=== PATIENT | male | born 1970 | race African-American/Black ===

== ENCOUNTER 2019-08-29 00:43 | Emergency (ER) | payer OTHER ==
[~2019-08-29] VITALS: Ht 167.6 cm; Wt 54.4 kg
--- NOTE | 2019-08-29 00:50 | NUR ---
ED Nurse Note: pt biba ra [id number] from [facility] c/o persistent vomiting. pt vomited twice enroute. pt has elevated bp at bedside, nad, ermd at bedside. pt has right picc line with double lumen. will continue to monitor patient.
--- NOTE | 2019-08-29 01:18 | Emergency Room Report ---
History of Present Illness General Chief Complaint: Vomiting Source: Patient Present Illness HPI This is a 48-year-old male with history of diabetes high blood pressure. He is currently in the [facility]dc for IV antibiotics for diabetic foot ulcer infection. He is currently taking vancomycin. He presents with complaint of abdominal pain and vomiting. Onset for the last 6 hours patient has been vomiting nonstop. Low-grade fever. Blowing is nonbloody nonbilious but no diarrhea. [place] weak. Also with a coughing from vomiting. Denies any other complaint. Pain is 5 out of 10. Allergies: Coded Allergies: No Known Allergies (Unverified , 08/29/19) Patient History Past Medical History: see triage record, old chart reviewed, DM, HTN Past Surgical History: other Pertinent Family History: none Social History: Denies: smoking Immunizations: other Reviewed Nursing Documentation: PMH: Agreed; PSxH: Agreed Review of Systems Eye: Denies: eye pain, blurred vision ENT: Denies: ear pain, nose congestion, throat swelling Respiratory: Denies: cough, shortness of breath Cardiovascular: Denies: chest pain, palpitations Gastrointestinal: Reports: abdominal pain, nausea, vomiting; Denies: diarrhea Musculoskeletal: Denies: back pain, joint pain Skin: Denies: rash Neurological: Denies: headache, numbness Endocrine: Denies: increased thirst, increased urine Hematologic/Lymphatic: Denies: easy bruising All Other Systems: negative except mentioned in HPI Physical Exam Vital Signs Date Time Temp Pulse Resp B/P (MAP) Pulse Ox O2 Delivery O2 Flow Rate FiO2 08/29/19 00:45 99.1 92 17 195/110 (138) 98 Room Air Vitals with high blood pressure Sp02 EP Interpretation: reviewed, normal General Appearance: well appearing, no apparent distress, alert Head: normocephalic, atraumatic Eyes: bilateral eye PERRL, bilateral eye EOMI ENT: hearing grossly normal, normal pharynx Neck: full range of motion, supple, no meningismus Respiratory: chest non-tender, lungs clear, normal breath sounds Cardiovascular #1: regular rate, rhythm, no murmur Gastrointestinal: no mass, no organomegaly, no bruit, non-distended, tenderness - Mild, diffuse, decreased bowel sounds Musculoskeletal: back normal, normal range of motion, gait/station normal Neurologic: alert Psychiatric: mood/affect normal Medical Decision Making Diagnostic Impression: Primary Impression: Vomiting Qualified Codes: R11.2 - Nausea with vomiting, unspecified Additional Impression: Anemia, chronic disease ER Course Patient presents with persisting nausea and vomiting for several hours. Better now. No longer vomiting. Abdominal exam is benign. Soft. Tolerating p.o. now. CT scan showed none [place] finding. He has small size pleural effusion with adjacent atelectasis. No evidence of infiltrates or pneumonia based on clinical exam. He is not coughing. No evidence of any hypoxia or fever. Will discharge back to fdc. CT/MRI/US Diagnostic Results CT/MRI/US Diagnostic Results : Imaging Test Ordered: CT abdomen pelvis Impression And by radiologist. Some wall thickening suspected of the bladder. Bilateral small to moderate sized pleural effusion with adjacent atelectasis. No obstruction. Last Vital Signs Date Time Temp Pulse Resp B/P (MAP) Pulse Ox O2 Delivery O2 Flow Rate FiO2 08/29/19 00:45 99.1 92 17 195/110 (138) 98 Room Air Status: improved Disposition: ER SNF Condition: Stable Scripts Ondansetron (Zofran) 4 Mg Tablet 4 MG ORAL Q6H PRN for Nausea & Vomiting, #10 TAB 0 Refills Prov: Justo Frances MD 08/29/19 Patient Instructions: Nausea and Vomiting, Adult Additional Instructions: Follow-up with your doctor in 2-3 days if not better. Return if worse. Justo Frances MD Aug 29, 2019 01:17
[2019-08-29 01:30] LABS: HEMATOCRIT 23.9 % (42.0-52.0); HEMOGLOBIN 7.8 G/DL (14.2-18.0); MEAN CORPUSCULAR VOLUME 79 FL (80-99); PLATELET COUNT 670 K/UL (150-450); RED BLOOD COUNT 3.05 M/UL (4.70-6.10); RED CELL DISTRIBUTION WIDTH 13.2 % (11.6-14.8); WHITE BLOOD COUNT 13.8 K/UL (4.8-10.8)
--- NOTE | 2019-08-29 01:47 | NUR ---
ED Nurse Note: pt went for ct via gurney accompanied by radio personality in stable condition
[2019-08-29 01:48] VITALS: BP 181/91
[2019-08-29 01:50] LABS: ANION GAP 7 mmol/L (5-15); BLOOD UREA NITROGEN 21 mg/dL (7-18); CALCIUM 8.6 MG/DL (8.5-10.1); CARBON DIOXIDE 27 MMOL/L (21-32); CHLORIDE 103 MMOL/L (98-107); CREATININE 1.2 MG/DL (0.55-1.30); POTASSIUM 4.2 MMOL/L (3.5-5.1); SODIUM 137 MMOL/L (136-145)
[2019-08-29 01:52] LABS: APPEARANCE,URINE CLEAR; BILIRUBIN, URINE NEGATIVE (NEGATIVE); COLOR,URINE PALE YELLOW; GLUCOSE, URINE (UA) 4+ (NEGATIVE); KETONES,URINE NEGATIVE (NEGATIVE); LEUKOCYTE ESTERASE ,URINE NEGATIVE (NEGATIVE); NITRITE,URINE NEGATIVE (NEGATIVE); PH,URINE 5 (4.5-8.0); PROTEIN,URINE 4+ (NEGATIVE); UROBILINOGEN,URINE NORMAL MG/DL (0.0-1.0)
[2019-08-29 01:54] LABS: ALANINE AMINOTRANSFERASE 14 U/L (12-78); ALBUMIN 1.4 G/DL (3.4-5.0); ALBUMIN/GLOBULIN RATIO 0.2 (1.0-2.7); ALKALINE PHOSPHATASE 127 U/L (46-116); ASPARTATE AMINO TRANSFERASE 20 U/L (15-37); BILIRUBIN,TOTAL 0.3 MG/DL (0.2-1.0)
[2019-08-29] MEDS ORDERED: Morphine Sulfate 4mg/ml Inj (IV USE ONLY) IVP ONE (02:15)
--- NOTE | 2019-08-29 03:12 | Diagnostic Imaging Report ---
Indication: Abdominal pain Technique: Spiral acquisitions obtained through the abdomen and pelvis. No oral contrast utilized, per emergency room physician request No IV contrast utilized, per referring physician request.. Multiplanar reconstructions were generated. Total dose length product 661 mGycm. CTDIvol(s) 11 mGy. Dose reduction achieved using automated exposure control Comparison: None Findings: Exam is severely limited due to lack of oral and IV contrast, image noise related to patient inability to raise arms overhead, and generalized anasarca decreasing soft tissue contrast There is very mild distention of the rectum by feces. There is overall prominent retained fecal material throughout the colon. Appendix is equivocally visualized. No definite findings to suggest acute appendicitis. No small bowel distention. No free or loculated intraperitoneal gas or fluid. There is generalized edema of the subcutaneous and retroperitoneal fat. Lack of IV contrast limits assessment of the solid organs. The liver, gallbladder, bile ducts, pancreas, spleen, kidneys are grossly unremarkable. The adrenals are equivocally somewhat hypertrophic. There is questionably retroperitoneal lymphadenopathy, nodes ill-defined size up to 3 cm in long axis dimension. There are also prominent inguinal nodes. There is diffuse circumferential bladder wall thickening. No pelvic mass or adenopathy. There are large bilateral pleural effusions. These result in compressive atelectasis of much of both lower lobes. There are degenerative spondylosis changes. Impression: . Limited exam due to lack of oral IV contrast, diffuse anasarca. Bilateral large pleural effusions. Resultant compressive atelectasis of both lower lobes Evidence of anasarca elsewhere with diffuse edema of the subcutaneous, abdominal, and retroperitoneal fat Evidence of constipation. Possible mild rectal fecal impaction Bladder wall thickening, concerning for cystitis. Correlate with clinical findings Borderline enlarged inguinal and retroperitoneal lymph nodes Equivocal mild adrenal hypertrophy Incidental finding degenerative spondylosis This agrees with the preliminary interpretation provided overnight by [facility]. The CT scanner at [facility] is accredited by the [employer] and the scans are performed using protocols designed to limit radiation exposure to as low as reasonably achievable to attain images of sufficient resolution adequate for diagnostic evaluation.
[2019-08-29] MEDS ORDERED: ZOFRAN4 MG ORAL (03:21)
[2019-08-29 03:52] VITALS: BP 193/94
[2019-08-29 03:58] VITALS: BP 164/81
[2019-08-29 04:57] VITALS: BP 157/69
--- NOTE | 2019-08-29 04:57 | NUR ---
ER DISCHARGE NOTE: Patient is cleared to be discharged per ERMD, pt is aox4, on room air, with stable vital signs. pt was transferred via lifeline, pt was able to verbalize understanding, pt id band removed without complications. pt is transferred via gurney in stable condition.
[2019-08-29] MEDS ORDERED: AMLODIPINE BESYL5 MG ORAL (07:54)
[2019-08-29] MEDS ORDERED: DOCUSATE SODIU100 MG ORAL (07:54)
[2019-08-29] MEDS ORDERED: VANCOMYCIN750 MG/150 IV (08:00)
== END 2019-08-29 04:57 ==
LOC: EDBD 00:43 → EMR 01:30
DX: R11.2 Nausea with vomiting, unspecified (principal); I10 Essential (primary) hypertension; D64.9 Anemia, unspecified; E11.621 Type 2 diabetes mellitus with foot ulcer; J90 Pleural effusion, not elsewhere classified; J98.11 Atelectasis
CPT/HCPCS: 36415; 74176; 80053; 81003; 83690; 85025; 96361; 96374; 96375; 96376; J0360; J2270; J2405; J7030; Z7502; 99284

== ENCOUNTER 2019-08-29 06:19 | Emergency (ER) | payer OTHER ==
[~2019-08-29] VITALS: Ht 177.8 cm; Wt 59.0 kg
[~2019-08-29 06:19] MED LIST: ZOFRAN4 MG ORAL
[2019-08-29 06:25] VITALS: BP 180/95
--- NOTE | 2019-08-29 06:25 | NUR ---
ED Nurse Note: Patient brought in by EMS from SNF, was previously in ER earlier today but SNF sent patient back d/t high blood pressure. Patient aao x 4, non ambulatory d/t bilateral foot diabetic ulcers. Patient placed on gynaecological oncologist. No acute distress noted.
--- NOTE | 2019-08-29 06:47 | Emergency Room Report ---
History of Present Illness General Chief Complaint: Hypertension Source: Patient Present Illness HPI Patient is a 48-year-old male who presents after increased blood pressure. Patient had prior history of hypertension as well as chronic wounds to both lower extremities. He is currently undergoing antibiotic therapy. He reports having increased dizziness as well as a vertigo-like sensation. He takes medications for his blood pressure. Reports having nonproductive cough. Had previously been on pain medications but not been taking any recently. Allergies: Coded Allergies: No Known Allergies (Unverified , 08/29/19) Patient History Past Medical History: see triage record Nursing Documentation-[facility] Hx Hypertension: Yes Hx Diabetes: Yes Physical Exam Vital Signs Date Time Temp Pulse Resp B/P (MAP) Pulse Ox O2 Delivery O2 Flow Rate FiO2 08/29/19 06:20 98.4 101 22 186/98 (127) 91 Room Air General Appearance: alert, GCS 15, Chronically Ill ENT: hearing grossly normal Neck: full range of motion Respiratory: chest non-tender, lungs clear Cardiovascular #1: normal inspection, no edema Gastrointestinal: other - mild diffuse tenderness Musculoskeletal: swelling - left foot, right foot slight less swelling Medical Decision Making Diagnostic Impression: Primary Impression: Bilateral pleural effusion Additional Impressions: Hypoalbuminemia Left foot infection DM type 2 (diabetes mellitus, type 2) Uncontrolled hypertension Anemia ER Course Patient presented for high blood pressure. Differential diagnosis include was not limited to opiate withdrawal, fluid overload, viral respiratory infection among others. Because of complexity of patient's case laboratory tests and imaging studies were ordered. Patient was noted to have recent emergency department visit.Patient's laboratory testing did show some evidence of anemia. Labs were repeated to evaluate for possible changes in hemoglobin. Patient's symptoms did not appear to be consistent with any bowel obstruction. Recent imaging of CT abdomen pelvis and with bilateral moderate-sized pleural effusions. Patient was given IV pain medications. Patient was discussed with Dr. Valiente who agreed to accept the patient as a transfer to [facility]. Labs Test 08/29/19 07:18 White Blood Count 15.0 K/UL (4.8-10.8) Red Blood Count 3.03 M/UL (4.70-6.10) Hemoglobin 7.6 G/DL (14.2-18.0) Hematocrit 23.7 % (42.0-52.0) Mean Corpuscular Volume 78 FL (80-99) Mean Corpuscular Hemoglobin 25.1 PG (27.0-31.0) Mean Corpuscular Hemoglobin Concent 32.1 G/DL (32.0-36.0) Red Cell Distribution Width 13.0 % (11.6-14.8) Platelet Count 675 K/UL (150-450) Mean Platelet Volume 4.6 FL (6.5-10.1) Neutrophils (%) (Auto) % (45.0-75.0) Lymphocytes (%) (Auto) % (20.0-45.0) Monocytes (%) (Auto) % (1.0-10.0) Eosinophils (%) (Auto) % (0.0-3.0) Basophils (%) (Auto) % (0.0-2.0) Last Vital Signs Date Time Temp Pulse Resp B/P (MAP) Pulse Ox O2 Delivery O2 Flow Rate FiO2 08/29/19 06:20 98.4 101 22 186/98 (127) 91 Room Air Status: improved Disposition: XFER [facility] HOSP Condition: Stable Jacky Hayes MD Aug 29, 2019 06:47
[2019-08-29] MEDS ORDERED: Morphine Sulfate 4mg/ml Inj (IV USE ONLY) IVP ONE (07:00)
[2019-08-29] MEDS ORDERED: Meclizine 25mg tab ORAL ONE (07:00)
--- NOTE | 2019-08-29 07:21 | NUR ---
HAND-OFF: Report given to GARRETT Gee.
[2019-08-29 07:24] VITALS: BP 177/85
[2019-08-29 07:30] LABS: HEMATOCRIT 23.7 % (42.0-52.0); HEMOGLOBIN 7.6 G/DL (14.2-18.0); MEAN CORPUSCULAR VOLUME 78 FL (80-99); PLATELET COUNT 675 K/UL (150-450); RED BLOOD COUNT 3.03 M/UL (4.70-6.10)
[2019-08-29] MEDS ORDERED: AMLODIPINE BESYL5 MG ORAL (07:54)
[2019-08-29] MEDS ORDERED: DOCUSATE SODIU100 MG ORAL (07:54)
[2019-08-29 07:59] LABS: ANION GAP 10 mmol/L (5-15); BLOOD UREA NITROGEN 22 mg/dL (7-18); CALCIUM 8.4 MG/DL (8.5-10.1); CARBON DIOXIDE 26 MMOL/L (21-32); CHLORIDE 102 MMOL/L (98-107); CREATININE 1.2 MG/DL (0.55-1.30); POTASSIUM 4.5 MMOL/L (3.5-5.1); SODIUM 137 MMOL/L (136-145)
[2019-08-29] MEDS ORDERED: VANCOMYCIN750 MG/150 IV (08:00)
[2019-08-29 08:13] LABS: ALANINE AMINOTRANSFERASE 14 U/L (12-78); ALBUMIN 1.5 G/DL (3.4-5.0); ALBUMIN/GLOBULIN RATIO 0.2 (1.0-2.7); ALKALINE PHOSPHATASE 129 U/L (46-116); ASPARTATE AMINO TRANSFERASE 20 U/L (15-37); BILIRUBIN,TOTAL 0.3 MG/DL (0.2-1.0)
--- NOTE | 2019-08-29 08:37 | NUR ---
ED Nurse Note: Pt returned from CT
[2019-08-29 09:19] VITALS: BP 167/89
--- NOTE | 2019-08-29 10:30 | Diagnostic Imaging Report ---
Indications: Hypertension, increased dizziness, increased vertigo-like sensation, history of pain medication use Technique: Spiral acquisitions obtained through the brain. Angled axial and coronal 5 x 5 mm slices were reconstructed. Total dose length product 1125 mGycm. CTDI vol(s) 53 mGy. Dose reduction achieved using automated exposure control Comparison: None. Findings: No acute intracranial hemorrhage or edema. No mass effect nor midline shift. Normal mueller-white differentiation. Normal size ventricles and extra-axial CSF spaces. Visualized orbits and sinuses are unremarkable. The mastoids are clear. The calvarium is intact Impression: Negative The CT scanner at [facility] is accredited by the [employer] and the scans are performed using protocols designed to limit radiation exposure to as low as reasonably achievable to attain images of sufficient resolution adequate for diagnostic evaluation.
--- NOTE | 2019-08-29 10:57 | NUR ---
ED Nurse Note: ambulnz unit 214 at bedside, pt given shannaich but refused. pt vss. NAD noted. Pt took all belongings. telephone report given to kenney nursing supervisor shearing at [facility] for continuity of care
[2019-08-29 11:02] VITALS: BP 159/82
== END 2019-08-29 10:57 | disposition short-term general hospital (02) ==
LOC: EDBD 06:19 → EMR 07:15
DX: I10 Essential (primary) hypertension (principal); J90 Pleural effusion, not elsewhere classified; E88.09 Other disorders of plasma-protein metabolism, not elsewhere classified; D64.9 Anemia, unspecified; E11.9 Type 2 diabetes mellitus without complications; L08.9 Local infection of the skin and subcutaneous tissue, unspecified
CPT/HCPCS: 36415; 70450; 80053; 83690; 84484; 85007; 85025; 96374; 96375; J2270; J2405; Z7502; 99285